=== PATIENT | female | born 1985 | race Caucasian/White ===

== ENCOUNTER 2021-05-23 21:05 | Emergency (ER) | payer OTHER | END 2021-05-23 22:32 | disposition home or self-care (01) | LOC: FER 21:05 | DX: T63.461A Toxic effect of venom of wasps, accidental (unintentional), initial encounter (principal); M79.89 Other specified soft tissue disorders; E11.9 Type 2 diabetes mellitus without complications; Z79.84 Long term (current) use of oral hypoglycemic drugs; Z79.899 Other long term (current) drug therapy | CPT/HCPCS: 99282 ==